=== PATIENT | female | born 1955 | race Caucasian/White ===

== ENCOUNTER 2018-09-02 16:09 | Inpatient (IN) | payer MEDICARE, MEDICAID ==
[~2018-09-02] VITALS: Ht 147.3 cm; Wt 60.3 kg
[~2018-09-02 16:09] MED LIST: ARIP15TA2 PO; DIPH25TA20 PO; GABA-533 PO; MELA3TAB66 PO; MIRT15 PO; OLAN20TA2 PO
[2018-09-02 17:09] LABS: BASOPHILS % (AUTO) 0.7 % (0.0-2.0); EOSINOPHILS % (AUTO) 1.7 % (1.0-6.0); HEMATOCRIT 33.5 % (36-46); HEMOGLOBIN 11.1 g/dL (12.0-16.0); LYMPHOCYTES # (AUTO) 1.4 K/uL (1.0-4.8); MEAN CORPUSCULAR HEMOGLOBIN 33.4 pg (26.0-34.0); MEAN CORPUSCULAR HGB CONC 33.2 G/dL (31.0-37.0); MEAN CORPUSCULAR VOLUME 101 fL (80-100); MONOCYTES # (AUTO) 0.6 K/uL (0.1-1.0); MONOCYTES % (AUTO) 12.9 % (2.0-9.0); NEUTROPHILS # (AUTO) 2.5 K/uL (1.8-7.7); NEUTROPHILS % (AUTO) 54.7 % (40.0-70.0); PLATELET COUNT (AUTO) 151 K/uL (150-450); RED BLOOD CELL COUNT(AUTO) 3.33 MIL/uL (4.00-5.20); RED CELL DISTRIBUTION WIDTH 14.1 % (11.5-14.5)
[2018-09-02 17:18] LABS: ANION GAP 11 mmol/L (8-16); CALCIUM, TOTAL 8.7 mg/dL (8.8-10.5); CARBON DIOXIDE 19 mmol/L (22-29); CHLORIDE 112 mmol/L (98-107); CREATININE 0.72 mg/dL (0.60-1.30); GLOMERULAR FILTR. RATE CALC > 60 mL/min (>60); GLUCOSE,RANDOM 99 mg/dL (70-110); POTASSIUM 3.1 mmol/L (3.5-5.1); SODIUM SERUM 142 mmol/L (136-145); UREA NITROGEN, BLOOD 20 mg/dL (7-18)
[2018-09-02 17:22] LABS: PROTHROMBIN TIME 10.5 SEC (9.4-11.6)
[2018-09-02 17:25] LABS: B-TYPE NATRIURETIC PEPTIDE 12 pg/mL (0-100)
[2018-09-02 17:43] LABS: ALANINE AMINOTRANSFERASE 20 U/L (12-78); ALBUMIN 2.9 g/dL (3.4-5.0); ALKALINE PHOSPHATASE 80 U/L (46-116); ASPARTATE AMINOTRANSFERASE 17 U/L (15-37); BILIRUBIN,TOTAL 0.1 mg/dL (0.1-1.0); CREATINE KINASE, TOTAL ONLY 109 U/L (26-192); TOTAL PROTEIN, SERUM 6.1 g/dL (6.4-8.2)
[2018-09-02] MEDS ORDERED: OLAN10TA3 PO (18:13)
[2018-09-02] MEDS ORDERED: MIRT30 PO (18:13)
[2018-09-02] MEDS ORDERED: HALOPERIDOL 5 MG TABLET PO PRN (18:15)
[2018-09-02] MEDS ORDERED: KETOROLAC TROMETHAMINE 30 MG/ML VIAL IM ONE (18:30)
[2018-09-02] MEDS ORDERED: IPRATROPIUM BROMIDE 0.5 MG/2.5 ML NEB SOLUTION NEB ONE (18:30)
[2018-09-02] MEDS ORDERED: ALBUTEROL SULFATE 2.5 MG/0.5 ML NEB SOLUTION NEB ONE (18:30)
[2018-09-02] MEDS ORDERED: 0.9% SODIUM CHLORIDE 5 ML NEB SOLUTION NEB ONE (18:55)
[2018-09-02 19:44] LABS: APPEARANCE,URINE CLOUDY (CLEAR); BILIRUBIN,URINE NEGATIVE (NEGATIVE); GLUCOSE, URINE (UA) NEGATIVE (NEGATIVE); KETONES,URINE NEGATIVE (NEGATIVE); LEUKOCYTE ESTERASE ,URINE NEGATIVE (NEGATIVE); NITRATE,URINE NEGATIVE (NEGATIVE); OCCULT BLOOD,URINE NEGATIVE (NEGATIVE); PH,URINE 6.5 (5.0-8.0); PROTEIN,URINE NEGATIVE (NEGATIVE); UROBILINOGEN,URINE 0.2 mg/dL (<=1.0)
[2018-09-02 19:54] LABS: AMPHET/METH SCREEN,URINE NEGATIVE (NEGATIVE); BARBITURATE SCREEN, URINE NEGATIVE (NEGATIVE); BENZODIAZEPINES SCREEN,URINE NEGATIVE (NEGATIVE); CANNABINOID SCREEN,URINE NEGATIVE (NEGATIVE); COCAINE SCREEN,URINE NEGATIVE (NEGATIVE); METHADONE SCREEN, URINE NEGATIVE (NEGATIVE); OPIATE SCREEN,URINE NEGATIVE (NEGATIVE)
[2018-09-02 19:57] LABS: PHENCYCLIDINE SCREEN,URINE NEGATIVE (NEGATIVE)
[2018-09-02] MEDS ORDERED: POTASSIUM CHLORIDE 20 MEQ ER TABLET PO ONE ×2 (20:15→21:45)
[2018-09-02 20:58] VITALS: BP 137/68
[2018-09-02] MEDS ORDERED: GuaiFENesin/D-METHORPHAN [SUGAR-FREE] 200-20MG/10 ML SYRUP UDCUP PO PRN (21:30)
[2018-09-02] MEDS ORDERED: NICOTINE 14 MG/24 HOUR PATCH TD PRN (21:30)
[2018-09-02] MEDS ORDERED: MAG HYDROX/AL HYDROX/SIMETH ES 30 ML SUSPENSION UDCUP PO PRN (21:30)
[2018-09-02] MEDS ORDERED: PETROLATUM,WHITE 71 GM JELLY TP PRN (21:30)
[2018-09-02] MEDS ORDERED: LOPERAMIDE HCL 2 MG CAPSULE PO PRN (21:30)
[2018-09-02] MEDS ORDERED: ONDANSETRON HCL 4 MG TABLET PO PRN (21:30)
[2018-09-02] MEDS ORDERED: CloNIDine HCL 0.1 MG TABLET PO PRN (21:30)
[2018-09-02] MEDS ORDERED: DOCUSATE SODIUM 100 MG CAPSULE PO PRN (21:30)
[2018-09-02] MEDS ORDERED: MAGNESIUM HYDROXIDE SUSPENSION 30 ML UDCUP PO PRN (21:30)
[2018-09-03 00:09] VITALS: BP 112/63
[2018-09-03] MEDS: ZOLPIDEM TARTRATE 10 MG TABLET PO PRN (00:09)
[2018-09-03 06:03] LABS: BASOPHILS % (AUTO) 0.4 % (0.0-2.0); EOSINOPHILS % (AUTO) 2.1 % (1.0-6.0); HEMATOCRIT 33.9 % (36-46); HEMOGLOBIN 11.5 g/dL (12.0-16.0); LYMPHOCYTES # (AUTO) 1.1 K/uL (1.0-4.8); LYMPHOCYTES % (AUTO) 19.1 % (22.0-44.0); MEAN CORPUSCULAR HEMOGLOBIN 33.8 pg (26.0-34.0); MEAN CORPUSCULAR HGB CONC 33.8 G/dL (31.0-37.0); MEAN CORPUSCULAR VOLUME 100 fL (80-100); MONOCYTES # (AUTO) 0.6 K/uL (0.1-1.0); MONOCYTES % (AUTO) 10.5 % (2.0-9.0); NEUTROPHILS % (AUTO) 67.9 % (40.0-70.0); PLATELET COUNT (AUTO) 148 K/uL (150-450); RED BLOOD CELL COUNT(AUTO) 3.39 MIL/uL (4.00-5.20); RED CELL DISTRIBUTION WIDTH 14.2 % (11.5-14.5)
[2018-09-03 06:26] LABS: HEMOGLOBIN A1C 5.5 % (4.5-6.2)
[2018-09-03 06:29] LABS: ALANINE AMINOTRANSFERASE 19 U/L (12-78); ALBUMIN 2.9 g/dL (3.4-5.0); ALKALINE PHOSPHATASE 73 U/L (46-116); ANION GAP 7 mmol/L (8-16); ASPARTATE AMINOTRANSFERASE 17 U/L (15-37); BILIRUBIN,TOTAL 0.3 mg/dL (0.1-1.0); CALCIUM, TOTAL 8.7 mg/dL (8.8-10.5); CARBON DIOXIDE 23 mmol/L (22-29); CHLORIDE 111 mmol/L (98-107); CREATININE 0.69 mg/dL (0.60-1.30); GLOMERULAR FILTR. RATE CALC > 60 mL/min (>60); GLUCOSE,RANDOM 85 mg/dL (70-110); SODIUM SERUM 141 mmol/L (136-145); TOTAL PROTEIN, SERUM 6.2 g/dL (6.4-8.2); UREA NITROGEN, BLOOD 21 mg/dL (7-18)
[2018-09-03 06:50] LABS: CHOL/HDL RATIO 1.6 (3.9-5.7); CHOLESTEROL 130 mg/dL (131-200); FREE T4 (FREE THYROXINE) 0.77 ng/dL (0.76-1.46); HDL CHOLESTEROL 82 mg/dL (40-60); LDL CHOL (CALC.) 45 mg/dL (0-130); THYROID STIMULATING HORMONE 1.64 uIU/mL (0.36-3.74); TRIGLYCERIDES 17 mg/dL (15-150)
[2018-09-03] MEDS: NICOTINE 14 MG/24 HOUR PATCH TD SCH (08:06)
[2018-09-03 08:58] VITALS: BP 98/65
[2018-09-03] MEDS: DENTURE ADHESIVE 68 GM CREAM DT PRN (11:24)
[2018-09-03] MEDS: IBUPROFEN 400 MG TABLET PO PRN (12:41)
[2018-09-03] MEDS: GABAPENTIN 400 MG CAPSULE PO SCH (16:36)
[2018-09-03 16:44] VITALS: BP 112/66
[2018-09-03] MEDS: LORazepam 2 MG TABLET PO PRN (18:45)
[2018-09-03] MEDS: DiphenhydrAMINE HCL 50 MG CAPSULE PO SCH (21:00)
[2018-09-03] MEDS: MIRTAZAPINE 15 MG TABLET PO SCH (21:00)
[2018-09-04] MEDS: ZOLPIDEM TARTRATE 10 MG TABLET PO PRN (01:25)
[2018-09-04 02:14] VITALS: BP 127/73
[2018-09-04 06:40] VITALS: BP 112/67
[2018-09-04] MEDS: IBUPROFEN 400 MG TABLET PO PRN (06:43)
[2018-09-04] MEDS: ARIPiprazole 15 MG TABLET PO SCH (08:03)
[2018-09-04] MEDS: NICOTINE 14 MG/24 HOUR PATCH TD SCH (08:04)
[2018-09-04] MEDS: GABAPENTIN 400 MG CAPSULE PO SCH ×2 (08:05→12:02)
[2018-09-04 10:15] VITALS: BP 105/74
[2018-09-04] MEDS: DENTURE ADHESIVE 68 GM CREAM DT PRN (12:02)
[2018-09-04] MEDS: ACETAMINOPHEN 325 MG TABLET PO PRN (13:07)
[2018-09-04 13:13] VITALS: BP 104/53
[2018-09-04] MEDS: GABAPENTIN 300 MG CAPSULE PO SCH (16:23)
[2018-09-04 18:26] VITALS: BP 138/76
[2018-09-04] MEDS: TraZODone HCL 50 MG TABLET PO SCH (20:34)
[2018-09-04] MEDS: MIRTAZAPINE 15 MG TABLET PO SCH (20:34)
[2018-09-04] MEDS: DiphenhydrAMINE HCL 50 MG CAPSULE PO SCH (20:34)
[2018-09-05] MEDS: IBUPROFEN 400 MG TABLET PO PRN ×2 (01:45→15:19)
[2018-09-05 01:56] VITALS: BP 128/76
[2018-09-05] MEDS: NICOTINE 14 MG/24 HOUR PATCH TD SCH (08:00)
[2018-09-05] MEDS: ARIPiprazole 15 MG TABLET PO SCH (08:00)
[2018-09-05] MEDS: GABAPENTIN 300 MG CAPSULE PO SCH ×3 (08:00→16:25)
[2018-09-05 08:03] VITALS: BP 107/72
[2018-09-05] MEDS: ACETAMINOPHEN 325 MG TABLET PO PRN (08:03)
[2018-09-05 09:03] VITALS: BP 112/74
[2018-09-05] MEDS: ALBUTEROL SULFATE HFA 90 MCG/PUFF 8 GM INHALER IH PRN (09:52)
[2018-09-05] MEDS: FLUTICASONE PROPIONATE 50 MCG/SPRAY 16 GM NASAL SPRAY NASAL PRN (12:40)
[2018-09-05 16:19] VITALS: BP 118/72
[2018-09-05] MEDS: MIRTAZAPINE 15 MG TABLET PO SCH (20:52)
[2018-09-05] MEDS: TraZODone HCL 50 MG TABLET PO SCH (20:52)
[2018-09-05] MEDS: DiphenhydrAMINE HCL 50 MG CAPSULE PO SCH (20:52)
[2018-09-06 01:27] VITALS: BP 129/67
[2018-09-06] MEDS: ACETAMINOPHEN 325 MG TABLET PO PRN (01:31)
[2018-09-06] MEDS: ALBUTEROL SULFATE HFA 90 MCG/PUFF 8 GM INHALER IH PRN ×3 (01:32→21:07)
[2018-09-06] MEDS: LORazepam 2 MG TABLET PO PRN (05:43)
[2018-09-06] MEDS: GABAPENTIN 300 MG CAPSULE PO SCH ×3 (08:51→17:44)
[2018-09-06] MEDS: ARIPiprazole 15 MG TABLET PO SCH (08:52)
[2018-09-06] MEDS: NICOTINE 14 MG/24 HOUR PATCH TD SCH (09:01)
[2018-09-06 09:04] VITALS: BP 128/76
[2018-09-06] MEDS: FLUTICASONE PROPIONATE 50 MCG/SPRAY 16 GM NASAL SPRAY NASAL PRN (12:13)
[2018-09-06 16:57] VITALS: BP 118/72
[2018-09-06] MEDS: MIRTAZAPINE 15 MG TABLET PO SCH (21:06)
[2018-09-06] MEDS: DiphenhydrAMINE HCL 50 MG CAPSULE PO SCH (21:06)
[2018-09-06] MEDS: TraZODone HCL 50 MG TABLET PO SCH (21:06)
[2018-09-07 01:45] VITALS: BP 120/66
[2018-09-07] MEDS: ZOLPIDEM TARTRATE 10 MG TABLET PO PRN (01:47)
[2018-09-07] MEDS: ACETAMINOPHEN 325 MG TABLET PO PRN (03:41)
[2018-09-07] MEDS: ARIPiprazole 15 MG TABLET PO SCH (08:15)
[2018-09-07] MEDS: GABAPENTIN 300 MG CAPSULE PO SCH (08:16)
[2018-09-07] MEDS: NICOTINE 14 MG/24 HOUR PATCH TD SCH (08:17)
[2018-09-07] MEDS ORDERED: TRAZ-219 PO (09:01)
== END 2018-09-07 10:05 | disposition home or self-care (01) | DRG 885 ==
LOC: EMS 16:11 → 3EX 19:42
PROVIDERS: ADMIT Psychiatry & Neurology Psychiatry; ATTEND Psychiatry & Neurology Psychiatry
DX: F25.0 Schizoaffective disorder, bipolar type (principal); B18.2 Chronic viral hepatitis C; R45.851 Suicidal ideations; D64.9 Anemia, unspecified; E11.9 Type 2 diabetes mellitus without complications; F41.9 Anxiety disorder, unspecified; G43.909 Migraine, unspecified, not intractable, without status migrainosus; J44.9 Chronic obstructive pulmonary disease, unspecified; Z79.899 Other long term (current) drug therapy; Z87.891 Personal history of nicotine dependence; Z91.5 Personal history of self-harm; Z90.49 Acquired absence of other specified parts of digestive tract
CPT/HCPCS: 83036; 84439; 84443; 93005; 94640; 96372; G0378; G0480; J1885; J3535